=== PATIENT | female | born 1950 | race Caucasian/White ===

== ENCOUNTER 2020-01-03 09:18 | Emergency (ER) | payer BC, SELFPAY ==
[2020-01-03 09:41] VITALS: BP 135/89; PULSE 86; RESP 19; TEMP 36.6; O2SAT 98; BMI 30.9
--- NOTE | 2020-01-03 09:45 | HMH.EDUTC ---
[facility] [place] Disposition Clinical Impression: Infected cat bite of hand Qualifiers: Encounter type: initial encounter Laterality: right Qualified Code(s): S61.451A - Open bite of right hand, initial encounter; L08.9 - Local infection of the skin and subcutaneous tissue, unspecified; W55.01XA - Bitten by cat, initial encounter Disposition: Home, Self-Care Condition on Discharge: Good Instructions: DI for Cat Bite, Animal Bites, Doxycycline Additional Instructions: Keep area clean and dry Over the counter triple antibiotic ointment on bite Take medication as prescribed Follow up with Family doctor if needed Return if needed Straight to ER if any life threatening symptoms Prescriptions: Doxycycline Monohydrate [Doxycycline [place] 100mg Tab] 100 mg PO BID 7 Days #14 tab Transmission Status: Pending to [facility] Referrals: PCPBerna [Primary Care Provider] - Time of Disposition: 09:59 Medical Decision Making - Rafita Inquiry Pt receiving controlled substance: No Rafita was queried for this patient: No Vital Signs: 01/03/20 09:41 Temperature 97.8 F Temperature Source Oral Pulse Rate [Radial] 86 Respiratory Rate 19 Blood Pressure [Right Arm] 135/89 Blood Pressure Mean [Right Arm] 104 Blood Pressure Source [Right Arm] Automatic Cuff Blood Pressure Position [Right Arm] Sitting 02 Sat by Pulse Oximetry 98 Oxygen Delivery Method Room Air [facility] [place] HPI - General Stated complaint: right hand cat bite Time Seen by Provider: 01/03/20 09:45 Mode of Arrival: Ambulatory Source of Information: Patient Limitations: No Limitations Description of Symptoms (Recalled from Triage Doc. by RN): cat bite on top of right hand last night. HEENT Symptoms (Recalled from RN notes): No Resp Symptoms (Recalled from RN notes): No Skin Symptoms (Recalled from RN notes): Yes MS Symptoms (Recalled from RN notes): No Functional Status (Recalled from RN notes): wnl - History of Present Illness Provider Complaint: Patient states that she was petting her brothers cat and it bite her on top of her right hand twice States that she immediately cleaned it and applied tripple antibotic ointment and today it was looking red States that she is a diabetic and worried that it may be getting infected - Related Data Previous Rx's Medication Instructions Recorded Doxycycline Monohydrate 100 mg PO BID 7 Days #14 tab 01/03/20 [Doxycycline [place] 100mg Tab] Allergies Allergy/AdvReac Type Severity Reaction Status Date / Time amoxicillin Allergy Verified 01/03/20 09:45 - Worker's Comp Is this a Worker's Comp case?: No [facility] History - Hepatitis A Screen Drug use history?: No High risk sexual behaviors?: No History of sexually transmitted infection?: No Currently employed?: No Childcare worker?: No Do you have indoor plumbing?: Yes Do you have electricity?: Yes Attestation statement:: This patient has been screened for Hepatitis A risk factors. I have reviewed the patient's past medical history: Yes Medical History: Reports:: Diabetes Mellitus Type 2 - Social History Alcohol Intake: never Occupational Status: other ROS Obtained: Yes All systems reviewed & no additional complaints, Yes Systems reviewed as appropriate & no additional complaints - Constitutional Constitutional: Reports system reviewed and no additional complaints, except as docu - Eyes Eyes: Reports system reviewed and no additional complaints, except as docu - ENT Ears, Nose, Mouth, and Throat: Reports system reviewed and no additional complaints, except as docu - Cardiovascular Cardiovascular: Reports system reviewed and no additional complaints, except as docu - Respiratory Respiratory: Yes system reviewed and no additional complaints, except as docu - Allergic/Immunologic Comments: redness on top of right hand Physical Exam - General General appearance: alert, in no apparent distress - Respiratory Respiratory exam: Present: sayda
[2020-01-03 10:10] VITALS: BP 135/89; PULSE 86; RESP 19; TEMP 36.6; O2SAT 98
== END 2020-01-03 10:11 | disposition home or self-care (01) ==
PROVIDERS: Emergency Provider Nurse Practitioner
DX: S61.451A Open bite of right hand, initial encounter (principal); E11.9 Type 2 diabetes mellitus without complications; W55.01XA Bitten by cat, initial encounter; Y92.89 Other specified places as the place of occurrence of the external cause
CPT/HCPCS: 99201